=== PATIENT | male | born 1950 | race Caucasian/White ===

== ENCOUNTER 2024-05-25 07:47 | Inpatient (IN) | payer MEDICARE ==
[2024-05-23 15:24] LABS: BASOPHILS % 0.3 % (0.0-1.0); EOSINOPHILS # (AUTO) 0.1 (0.0-0.4); EOSINOPHILS % 1.4 % (0.0-6.0); HEMATOCRIT 47.6 % (38.2-49.6); HEMOGLOBIN 15.8 g/dL (14.0-18.0); LYMPHOCYTES # (AUTO) 3.1 (1.0-3.2); LYMPHOCYTES % 35.3 % (18.0-39.1); MEAN CORPUSCULAR HEMOGLOBIN 33.4 pg (28-32); MEAN CORPUSCULAR HGB CONC 33.2 g/dL (31-35); MEAN CORPUSCULAR VOLUME 100.6 fL (81-99); MONOCYTES # (AUTO) 0.7 (0.2-0.8); MONOCYTES % 7.9 % (4.4-11.3); NEUTROPHILS # (AUTO) 4.7 (2.1-6.9); NEUTROPHILS % 54.5 % (38.7-80.0); PLATELET COUNT 165 x10e3/uL (140-360); RED BLOOD COUNT 4.73 x10e6/uL (4.3-5.7); RED CELL DISTRIBUTION WIDTH 12.5 % (11.7-14.4); WHITE BLOOD COUNT 8.68 x10e3/uL (4.8-10.8)
[2024-05-23 15:39] LABS: ANION GAP 14.8 mmol/L (8-16); CALCIUM 9.8 mg/dL (8.4-10.2); CREATININE, SERUM 1.12 mg/dL (0.72-1.25); POTASSIUM 3.8 mmol/L (3.5-5.1)
[~2024-05-25] VITALS: Ht 188 cm; Wt 91.6 kg
[~2024-05-25 07:47] MED LIST: FINASTERIDE5 MG PO; FLOMAX0.4 MG PO; PREDNISONE5 MG PO
[2024-05-25] MEDS: SODIUM CHLORIDE 0.9% 1000ML 1,000 ML ONE (08:16)
[2024-05-25] MEDS: CEFTRIAXONE 1 GM VIAL ONE (08:16)
[2024-05-25] MEDS: GENTAMICIN 80MG/NS 100 ML 200 ML IV ONE (08:17)
[2024-05-25] MEDS ORDERED: LIDOCAINE HCL 2% LOCAL INJ 5 ML SDV VIAL INJ ONE (10:36)
[2024-05-25] MEDS ORDERED: ACETAMINOPHEN 1000 MG/100 ML 100 ML IV ONE (10:36)
[2024-05-25] MEDS ORDERED: SEVOFLURANE INHAL SOLN 250 ML PEN BTL ONE (10:36)
[2024-05-25] MEDS ORDERED: PROPOFOL IV EMULSION 10 MG/ML 20 ML VIAL ONE ×2 (10:36→12:08)
[2024-05-25] MEDS ORDERED: DEXAMETHASONE SOD PHOS INJ 4 MG/ML SDV ONE (10:36)
[2024-05-25] MEDS ORDERED: ONDANSETRON HCL INJ 2MG/ML 2ML 2 MG/ML VIAL ONE (10:36)
[2024-05-25] MEDS ORDERED: FENTANYL CITRATE/PF 100MCG/2 ML INJ ONE ×2 (12:01→13:13)
[2024-05-25] MEDS ORDERED: EPHEDRINE SULFATE INJ 50 MG/ML VIAL ONE (12:16)
[2024-05-25] MEDS: FENTANYL CITRATE/PF 100MCG/2 ML INJ IV ONE ×2 (13:58→14:05)
[2024-05-25] MEDS ORDERED: ACETAMINOPHEN/CODEINE 300MG - 30MG TAB PO PRN (14:15)
[2024-05-25] MEDS ORDERED: ONDANSETRON HCL INJ 2MG/ML 2ML 2 MG/ML VIAL IV PRN (14:15)
[2024-05-25] MEDS ORDERED: PHENAZOPYRIDINE HCL 100 MG TAB PO PRN (14:15)
[2024-05-25] MEDS ORDERED: DIPHENHYDRAMINE HCL 25 MG CAP PO PRN (14:15)
[2024-05-25] MEDS ORDERED: ACETAMINOPHEN 1000 MG/100 ML IV PRN (14:15)
[2024-05-25 14:38] LABS: BASOPHILS % 0.3 % (0.0-1.0); EOSINOPHILS # (AUTO) 0.1 (0.0-0.4); EOSINOPHILS % 0.4 % (0.0-6.0); HEMATOCRIT 47.1 % (38.2-49.6); LYMPHOCYTES # (AUTO) 1.8 (1.0-3.2); LYMPHOCYTES % 16.3 % (18.0-39.1); MEAN CORPUSCULAR HEMOGLOBIN 33.3 pg (28-32); MEAN CORPUSCULAR HGB CONC 31.8 g/dL (31-35); MEAN CORPUSCULAR VOLUME 104.4 fL (81-99); MONOCYTES # (AUTO) 0.4 (0.2-0.8); MONOCYTES % 3.6 % (4.4-11.3); NEUTROPHILS # (AUTO) 8.9 (2.1-6.9); NEUTROPHILS % 78.9 % (38.7-80.0); PLATELET COUNT 145 x10e3/uL (140-360); RED BLOOD COUNT 4.51 x10e6/uL (4.3-5.7); RED CELL DISTRIBUTION WIDTH 12.8 % (11.7-14.4); WHITE BLOOD COUNT 11.25 x10e3/uL (4.8-10.8)
[2024-05-25 14:45] VITALS: BP 141/82; PULSE 51; RESP 14; TEMP 97.4; O2SAT 99
[2024-05-25 14:58] LABS: ANION GAP 14.3 mmol/L (8-16); CALCIUM 8.4 mg/dL (8.4-10.2); CREATININE, SERUM 1.05 mg/dL (0.72-1.25); POTASSIUM 4.3 mmol/L (3.5-5.1)
[2024-05-25 15:19] VITALS: BP 145/88; PULSE 54; RESP 18; TEMP 97.5; O2SAT 97
[2024-05-25] MEDS: SODIUM CHLORIDE 0.9% 1000ML 1,000 ML IV SCH (15:32)
[2024-05-25 15:42] VITALS: PULSE 50; RESP 20; O2SAT 99
[2024-05-25] MEDS: FENTANYL CITRATE/PF 100MCG/2 ML INJ ONE (17:32)
[2024-05-25] MEDS: TAMSULOSIN HCL 0.4 MG CAP PO SCH (19:53)
[2024-05-25] MEDS: PREDNISONE 5 MG TAB PO SCH (19:53)
[2024-05-25] MEDS: FINASTERIDE 5 MG TAB PO SCH (19:53)
[2024-05-25 20:00] VITALS: BP 121/81; PULSE 62; PULSE 65; RESP 16; RESP 18; TEMP 97.7; O2SAT 100; O2SAT 98
[2024-05-26] VITALS (7 sets, daily range): BP systolic 127–137; BP diastolic 69–84; PULSE 54–65; RESP 16–20; TEMP 97.3–98.8; O2SAT 98–99
[2024-05-26 05:16] LABS: BASOPHILS % 0.1 % (0.0-1.0); EOSINOPHILS % 0.1 % (0.0-6.0); HEMATOCRIT 45.7 % (38.2-49.6); HEMOGLOBIN 14.9 g/dL (14.0-18.0); LYMPHOCYTES # (AUTO) 1.9 (1.0-3.2); LYMPHOCYTES % 13.6 % (18.0-39.1); MEAN CORPUSCULAR HEMOGLOBIN 33.3 pg (28-32); MEAN CORPUSCULAR HGB CONC 32.6 g/dL (31-35); MONOCYTES # (AUTO) 1.1 (0.2-0.8); MONOCYTES % 7.7 % (4.4-11.3); NEUTROPHILS # (AUTO) 10.6 (2.1-6.9); NEUTROPHILS % 78.1 % (38.7-80.0); PLATELET COUNT 150 x10e3/uL (140-360); RED BLOOD COUNT 4.48 x10e6/uL (4.3-5.7); RED CELL DISTRIBUTION WIDTH 12.6 % (11.7-14.4)
[2024-05-26 05:32] LABS: ANION GAP 15.1 mmol/L (8-16); CALCIUM 8.6 mg/dL (8.4-10.2); CREATININE, SERUM 0.86 mg/dL (0.72-1.25); POTASSIUM 4.1 mmol/L (3.5-5.1)
[2024-05-27] VITALS (11 sets, daily range): BP systolic 113–135; BP diastolic 75–83; PULSE 58–75; RESP 18–20; TEMP 98.4–99.7; O2SAT 96–99
[2024-05-27 05:21] LABS: BASOPHILS % 0.2 % (0.0-1.0); EOSINOPHILS # (AUTO) 0.1 (0.0-0.4); EOSINOPHILS % 0.6 % (0.0-6.0); HEMATOCRIT 44.4 % (38.2-49.6); HEMOGLOBIN 14.5 g/dL (14.0-18.0); LYMPHOCYTES # (AUTO) 2.3 (1.0-3.2); LYMPHOCYTES % 18.1 % (18.0-39.1); MEAN CORPUSCULAR HEMOGLOBIN 33.2 pg (28-32); MEAN CORPUSCULAR HGB CONC 32.7 g/dL (31-35); MEAN CORPUSCULAR VOLUME 101.6 fL (81-99); MONOCYTES # (AUTO) 1.3 (0.2-0.8); MONOCYTES % 10.2 % (4.4-11.3); NEUTROPHILS # (AUTO) 9.1 (2.1-6.9); NEUTROPHILS % 70.5 % (38.7-80.0); PLATELET COUNT 147 x10e3/uL (140-360); RED BLOOD COUNT 4.37 x10e6/uL (4.3-5.7); RED CELL DISTRIBUTION WIDTH 12.8 % (11.7-14.4)
[2024-05-27 05:54] LABS: ANION GAP 11.8 mmol/L (8-16); CALCIUM 8.9 mg/dL (8.4-10.2); CREATININE, SERUM 0.89 mg/dL (0.72-1.25); POTASSIUM 3.8 mmol/L (3.5-5.1)
[2024-05-28] VITALS (7 sets, daily range): BP systolic 127–155; BP diastolic 76–87; PULSE 65–72; RESP 18; TEMP 98.2–99.5; O2SAT 98–100
[2024-05-28 06:30] LABS: BASOPHILS % 0.2 % (0.0-1.0); EOSINOPHILS # (AUTO) 0.1 (0.0-0.4); EOSINOPHILS % 0.4 % (0.0-6.0); HEMATOCRIT 42.1 % (38.2-49.6); HEMOGLOBIN 14.5 g/dL (14.0-18.0); LYMPHOCYTES # (AUTO) 1.8 (1.0-3.2); LYMPHOCYTES % 14.9 % (18.0-39.1); MEAN CORPUSCULAR HEMOGLOBIN 33.3 pg (28-32); MEAN CORPUSCULAR HGB CONC 34.4 g/dL (31-35); MEAN CORPUSCULAR VOLUME 96.6 fL (81-99); MONOCYTES # (AUTO) 1.2 (0.2-0.8); NEUTROPHILS # (AUTO) 9.1 (2.1-6.9); PLATELET COUNT 160 x10e3/uL (140-360); RED BLOOD COUNT 4.36 x10e6/uL (4.3-5.7); RED CELL DISTRIBUTION WIDTH 12.7 % (11.7-14.4); WHITE BLOOD COUNT 12.29 x10e3/uL (4.8-10.8)
[2024-05-28 07:01] LABS: ANION GAP 13.7 mmol/L (8-16); CALCIUM 9.1 mg/dL (8.4-10.2); CREATININE, SERUM 0.86 mg/dL (0.72-1.25); POTASSIUM 3.7 mmol/L (3.5-5.1)
== END 2024-05-28 17:14 | disposition home or self-care (01) | DRG 713 ==
LOC: OR 07:47 → PACU V 14:12 → MED/SURG 14:45
PROVIDERS: ADMIT Internal Medicine; ATTEND Internal Medicine
PROC: BT141ZZ Fluoroscopy of Kidneys, Ureters and Bladder using Low Osmolar Contrast (ICD-10-PCS; 2024-05-25)
PROC: BT101ZZ Fluoroscopy of Bladder using Low Osmolar Contrast (ICD-10-PCS; 2024-05-25)
PROC: 0V508ZZ Destruction of Prostate, Via Natural or Artificial Opening Endoscopic (ICD-10-PCS; principal; 2024-05-25 12:02)
DX: N40.1 Benign prostatic hyperplasia with lower urinary tract symptoms (principal); D68.9 Coagulation defect, unspecified; N13.8 Other obstructive and reflux uropathy; E87.20 Acidosis, unspecified; N41.9 Inflammatory disease of prostate, unspecified; R31.0 Gross hematuria; N30.90 Cystitis, unspecified without hematuria; R53.81 Other malaise
CPT/HCPCS: 36415; 71046; 74420; 80048; 83735; 85025; 88305; 88342; 93005; 94799; J0696; J1100; J1580; J2003; J2405; J7030; J7512

== ENCOUNTER 2024-07-02 03:09 | Observation (INO) | payer MEDICARE ==
[2024-07-02] VITALS (10 sets, daily range): BP systolic 114–133; BP diastolic 61–75; PULSE 58–74; RESP 16–20; TEMP 98.1–99.4; O2SAT 96–99
[~2024-07-02] VITALS: Ht 188 cm; Wt 91.6 kg
[2024-07-02 04:19] LABS: BASOPHILS # (AUTO) 0.1 (0.0-0.1); BASOPHILS % 0.5 % (0.0-1.0); EOSINOPHILS # (AUTO) 0.3 (0.0-0.4); EOSINOPHILS % 2.8 % (0.0-6.0); HEMATOCRIT 37.9 % (38.2-49.6); HEMOGLOBIN 11.8 g/dL (14.0-18.0); LYMPHOCYTES # (AUTO) 2.2 (1.0-3.2); LYMPHOCYTES % 22.4 % (18.0-39.1); MEAN CORPUSCULAR HGB CONC 31.1 g/dL (31-35); MEAN CORPUSCULAR VOLUME 105.9 fL (81-99); MONOCYTES # (AUTO) 1.1 (0.2-0.8); MONOCYTES % 10.8 % (4.4-11.3); NEUTROPHILS # (AUTO) 6.2 (2.1-6.9); PLATELET COUNT 183 x10e3/uL (140-360); RED BLOOD COUNT 3.58 x10e6/uL (4.3-5.7); RED CELL DISTRIBUTION WIDTH 13.2 % (11.7-14.4); WHITE BLOOD COUNT 9.81 x10e3/uL (4.8-10.8)
[2024-07-02 04:32] LABS: INR 0.94; PROTHROMBIN TIME 13.1 seconds (11.9-14.5)
[2024-07-02 04:33] LABS: PARTIAL THROMBOPLASTIN TIME 24.4 seconds (23.8-35.5)
[2024-07-02 04:40] LABS: CLARITY,URINE TURBID (CLEAR); COLOR,URINE RED (YELLOW); GLUCOSE, URINE 1+ (NEGATIVE); KETONES,URINE NEGATIVE (NEGATIVE); LEUKOCYTE ESTERASE ,URINE NEGATIVE (NEGATIVE); NITRITE,URINE NEGATIVE (NEGATIVE); PH,URINE 7 (5 - 7); PROTEIN,URINE DIPSTICK >=300 (NEGATIVE); URINE UROBILINOGEN 0.2 mg/dL (0.2 - 1)
[2024-07-02 04:41] LABS: BACTERIA,URINE MODERATE /HPF; BILIRUBIN,URINE NEGATIVE (NEGATIVE); EPITHELIAL CELLS,URINE FEW /LPF; RBC,URINE >50 /HPF (0-5)
[2024-07-02 04:42] LABS: ALBUMIN 3.6 g/dL (3.5-5.0); ALBUMIN/GLOBULIN RATIO 1.6 (0.8-2.0); BILIRUBIN,TOTAL 0.4 mg/dL (0.2-1.2); CALCIUM 9.4 mg/dL (8.4-10.2); CREATININE, SERUM 1.15 mg/dL (0.72-1.25); TOTAL PROTEIN 5.9 g/dL (6.5-8.1)
[2024-07-02] MEDS: SODIUM CHLORIDE 0.9% 1000ML 1,000 ML IV SCH (06:04)
[2024-07-02] MEDS ORDERED: DIPHENHYDRAMINE HCL 25 MG CAP PO PRN (09:45)
[2024-07-02] MEDS ORDERED: LIDOCAINE 4% PATCH TP PRN (09:45)
[2024-07-02] MEDS ORDERED: HYDROCODONE/APAP 5MG-325MG TAB PO PRN (09:45)
[2024-07-02] MEDS ORDERED: ONDANSETRON HCL INJ 2MG/ML 2ML 2 MG/ML VIAL IV PRN (09:45)
[2024-07-02] MEDS ORDERED: POTASSIUM CHLORIDE 20 MEQ TAB CR PO PRN (09:45)
[2024-07-02] MEDS ORDERED: SIMETHICONE 80 MG CHEW PO PRN (09:45)
[2024-07-02] MEDS ORDERED: ACETAMINOPHEN 325 MG TAB PO PRN (09:45)
[2024-07-02] MEDS ORDERED: ALBUTEROL/IPRATROPIUM 3 ML NEB NEB PRN (09:45)
[2024-07-02] MEDS ORDERED: DOCUSATE SODIUM 100 MG CAP PO PRN (09:45)
[2024-07-02] MEDS ORDERED: HYDRALAZINE HCL 20 MG/ML VIAL IV PRN (09:45)
[2024-07-02] MEDS ORDERED: BENZONATATE 100 MG CAP PO PRN (09:45)
[2024-07-02] MEDS ORDERED: DEXTROSE 50% SYRINGE 50 ML IV PRN (09:45)
[2024-07-02] MEDS ORDERED: MELATONIN 5 MG TABLET PO PRN (09:45)
[2024-07-02 10:24] LABS: HEMOGLOBIN 10.2 g/dL (14.0-18.0)
[2024-07-02] MEDS: PANTOPRAZOLE SOD 40 MG TABEC PO SCH (11:30)
[2024-07-02] MEDS: TAMSULOSIN HCL 0.4 MG CAP PO SCH (12:58)
[2024-07-02] MEDS: FINASTERIDE 5 MG TAB PO SCH (12:58)
[2024-07-02] MEDS ORDERED: PREDNISONE1 MG PO (13:06)
[2024-07-02] MEDS: PREDNISONE 5 MG/5 ML SOLN PO SCH (16:56)
[2024-07-02 17:53] LABS: HEMATOCRIT 30.6 % (38.2-49.6); HEMOGLOBIN 9.5 g/dL (14.0-18.0)
[2024-07-03] VITALS (10 sets, daily range): BP systolic 111–124; BP diastolic 62–68; PULSE 60–74; RESP 18–20; TEMP 97.7–99.3; O2SAT 96–98
[2024-07-03 06:32] LABS: BASOPHILS % 0.3 % (0.0-1.0); EOSINOPHILS # (AUTO) 0.2 (0.0-0.4); EOSINOPHILS % 2.6 % (0.0-6.0); HEMATOCRIT 28.5 % (38.2-49.6); HEMOGLOBIN 8.9 g/dL (14.0-18.0); LYMPHOCYTES # (AUTO) 2.4 (1.0-3.2); MEAN CORPUSCULAR HEMOGLOBIN 33.2 pg (28-32); MEAN CORPUSCULAR HGB CONC 31.2 g/dL (31-35); MEAN CORPUSCULAR VOLUME 106.3 fL (81-99); MONOCYTES # (AUTO) 0.9 (0.2-0.8); MONOCYTES % 10.1 % (4.4-11.3); NEUTROPHILS # (AUTO) 5.2 (2.1-6.9); NEUTROPHILS % 59.7 % (38.7-80.0); PLATELET COUNT 121 x10e3/uL (140-360); RED BLOOD COUNT 2.68 x10e6/uL (4.3-5.7); RED CELL DISTRIBUTION WIDTH 13.2 % (11.7-14.4); WHITE BLOOD COUNT 8.69 x10e3/uL (4.8-10.8)
[2024-07-03 06:58] LABS: ANION GAP 10.6 mmol/L (8-16); CALCIUM 8.2 mg/dL (8.4-10.2); CREATININE, SERUM 0.88 mg/dL (0.72-1.25); POTASSIUM 3.6 mmol/L (3.5-5.1)
[2024-07-03] MEDS: PREDNISONE 5 MG/5 ML SOLN PO SCH (16:23)
[2024-07-04] VITALS (7 sets, daily range): BP systolic 118–134; BP diastolic 67–71; PULSE 57–72; RESP 17–19; TEMP 97.6–99; O2SAT 97–100
[2024-07-04 05:46] LABS: BASOPHILS % 0.2 % (0.0-1.0); EOSINOPHILS # (AUTO) 0.2 (0.0-0.4); EOSINOPHILS % 2.6 % (0.0-6.0); HEMATOCRIT 27.3 % (38.2-49.6); HEMOGLOBIN 9.2 g/dL (14.0-18.0); LYMPHOCYTES # (AUTO) 2.2 (1.0-3.2); LYMPHOCYTES % 25.5 % (18.0-39.1); MEAN CORPUSCULAR HEMOGLOBIN 33.1 pg (28-32); MEAN CORPUSCULAR HGB CONC 33.7 g/dL (31-35); MEAN CORPUSCULAR VOLUME 98.2 fL (81-99); MONOCYTES # (AUTO) 0.8 (0.2-0.8); MONOCYTES % 9.8 % (4.4-11.3); NEUTROPHILS # (AUTO) 5.2 (2.1-6.9); NEUTROPHILS % 61.5 % (38.7-80.0); PLATELET COUNT 133 x10e3/uL (140-360); RED BLOOD COUNT 2.78 x10e6/uL (4.3-5.7); RED CELL DISTRIBUTION WIDTH 13.4 % (11.7-14.4)
[2024-07-04 06:34] LABS: ANION GAP 12.5 mmol/L (8-16); CALCIUM 8.5 mg/dL (8.4-10.2); CREATININE, SERUM 0.81 mg/dL (0.72-1.25); POTASSIUM 3.5 mmol/L (3.5-5.1)
[2024-07-11] MEDS ORDERED: SENNA S TABLET1 EACH PO (10:03)
[2024-07-11] MEDS ORDERED: CEPHALEXIN500 MG PO (10:03)
[2024-07-11] MEDS ORDERED: SODIUM BICARBO650 MG PO (10:03)
[2024-07-11] MEDS ORDERED: Ferrous Sulfate PO (10:03)
== END 2024-07-04 17:30 | disposition home or self-care (01) ==
LOC: ER 03:15 → ERHOLD 05:45 → MED/SURG3 07:40
PROVIDERS: ADMIT Internal Medicine; ATTEND Internal Medicine
DX: R31.0 Gross hematuria (principal); R33.9 Retention of urine, unspecified; M35.3 Polymyalgia rheumatica; Z90.79 Acquired absence of other genital organ(s); Z98.890 Other specified postprocedural states; Z79.899 Other long term (current) drug therapy; Z79.52 Long term (current) use of systemic steroids
CPT/HCPCS: 36415 ×3; 51700; 80048 ×2; 80053; 81001; 85014; 85018; 85025 ×3; 85610; 85730; 87086; 94799 ×3; 99284; G0378 ×3; J0692 ×3; J7030 ×2; S0164 ×3

== ENCOUNTER 2024-07-06 07:45 | Inpatient (IN) | payer MEDICARE ==
[~2024-07-06] VITALS: Ht 188 cm; Wt 88.5 kg
[~2024-07-06 07:45] MED LIST changes: +PREDNISONE1 MG PO
[2024-07-06 08:17] LABS: BASOPHILS # (AUTO) 0.1 (0.0-0.1); BASOPHILS % 0.5 % (0.0-1.0); EOSINOPHILS % 0.3 % (0.0-6.0); HEMATOCRIT 27.6 % (38.2-49.6); HEMOGLOBIN 8.8 g/dL (14.0-18.0); LYMPHOCYTES # (AUTO) 1.3 (1.0-3.2); LYMPHOCYTES % 12.3 % (18.0-39.1); MEAN CORPUSCULAR HEMOGLOBIN 33.3 pg (28-32); MEAN CORPUSCULAR HGB CONC 31.9 g/dL (31-35); MEAN CORPUSCULAR VOLUME 104.5 fL (81-99); MONOCYTES # (AUTO) 0.9 (0.2-0.8); MONOCYTES % 8.3 % (4.4-11.3); NEUTROPHILS # (AUTO) 8.4 (2.1-6.9); NEUTROPHILS % 77.8 % (38.7-80.0); PLATELET COUNT 217 x10e3/uL (140-360); RED BLOOD COUNT 2.64 x10e6/uL (4.3-5.7); RED CELL DISTRIBUTION WIDTH 13.1 % (11.7-14.4); WHITE BLOOD COUNT 10.83 x10e3/uL (4.8-10.8)
[2024-07-06] MEDS ORDERED: ONDANSETRON HCL INJ 2MG/ML 2ML 2 MG/ML VIAL IV PRN (08:30)
[2024-07-06 08:46] LABS: ANION GAP 17.1 mmol/L (8-16); CALCIUM 9.4 mg/dL (8.4-10.2); CREATININE, SERUM 1.32 mg/dL (0.72-1.25); POTASSIUM 4.1 mmol/L (3.5-5.1)
[2024-07-06] MEDS: SODIUM CHLORIDE 0.9% 1000ML 1,000 ML IV SCH (09:12)
[2024-07-06 11:02] VITALS: PULSE 77; RESP 16
[2024-07-06 11:55] VITALS: BP 127/77; PULSE 71; RESP 18; TEMP 98.1; O2SAT 98
[2024-07-06 12:00] VITALS: BP 127/77; PULSE 71; RESP 18; TEMP 98.1; O2SAT 98
[2024-07-06 16:00] VITALS: BP 120/67; PULSE 68; RESP 18; TEMP 98.6; O2SAT 98
[2024-07-06] MEDS ORDERED: LIDOCAINE HCL 2% LOCAL INJ 5 ML SDV VIAL INJ ONE (17:10)
[2024-07-06] MEDS ORDERED: FENTANYL CITRATE/PF 100MCG/2 ML INJ ONE (17:10)
[2024-07-06] MEDS ORDERED: SEVOFLURANE INHAL SOLN 250 ML PEN BTL ONE (17:12)
[2024-07-06] MEDS ORDERED: PROPOFOL IV EMULSION 10 MG/ML 20 ML VIAL ONE (17:12)
[2024-07-06] MEDS ORDERED: ACETAMINOPHEN 325 MG TAB PO PRN (18:00)
[2024-07-06] MEDS ORDERED: ALBUTEROL/IPRATROPIUM 3 ML NEB NEB PRN (18:00)
[2024-07-06] MEDS ORDERED: DOCUSATE SODIUM 100 MG CAP PO PRN (18:00)
[2024-07-06] MEDS ORDERED: METOPROLOL TARTRATE INJ 1 MG/ML VIAL IV PRN (18:00)
[2024-07-06 20:00] VITALS: BP 124/66; PULSE 73; RESP 18; TEMP 98.8; O2SAT 98
[2024-07-06 21:00] VITALS: BP 124/66; PULSE 73; RESP 18; TEMP 98.8; O2SAT 98
[2024-07-06] MEDS ORDERED: MELATONIN 3 MG TAB PO PRN (21:00)
[2024-07-06] MEDS ORDERED: KETOROLAC TROMETHAMINE 30 MG/ML VIAL ONE (21:52)
[2024-07-06] MEDS ORDERED: DEXAMETHASONE SOD PHOS INJ 4 MG/ML SDV ONE (21:52)
[2024-07-06] MEDS ORDERED: ONDANSETRON HCL INJ 2MG/ML 2ML 2 MG/ML VIAL ONE (21:52)
[2024-07-06] MEDS ORDERED: Morphine 10mg syringe 10 MG/ML INJ ONE (21:54)
[2024-07-06] MEDS ORDERED: SUCCINYLCHOLINE CHLORIDE 20 MG/ML 10ML VIAL ONE (21:59)
[2024-07-06] MEDS ORDERED: CEFTRIAXONE 1 GM VIAL ONE (22:16)
[2024-07-06] MEDS: ONDANSETRON HCL INJ 2MG/ML 2ML 2 MG/ML VIAL IV PRN (23:20)
[2024-07-06] MEDS ORDERED: ACETAMINOPHEN/CODEINE 300MG - 30MG TAB PO PRN (23:30)
[2024-07-06] MEDS ORDERED: ACETAMINOPHEN 1000 MG/100 ML IV PRN (23:30)
[2024-07-06] MEDS ORDERED: DIPHENHYDRAMINE HCL 25 MG CAP PO PRN (23:30)
[2024-07-07] VITALS (17 sets, daily range): BP systolic 102–122; BP diastolic 52–75; PULSE 63–77; RESP 14–19; TEMP 98.1–99.7; O2SAT 95–100
[2024-07-07] MEDS: Morphine 4mg INJECTION 4 MG/ML INJ IV PRN (00:41)
[2024-07-07] MEDS: SIMETHICONE 80 MG CHEW PO PRN (00:41)
[2024-07-07] MEDS: SODIUM CHLORIDE 0.9% 1000ML 1,000 ML IV SCH (06:28)
[2024-07-07] MEDS: SENNA-S TABLET PO SCH (09:00)
[2024-07-07] MEDS: PHENAZOPYRIDINE HCL 100 MG TAB PO PRN (09:02)
[2024-07-07] MEDS: FINASTERIDE 5 MG TAB PO SCH (09:04)
[2024-07-07] MEDS: TAMSULOSIN HCL 0.4 MG CAP PO SCH (09:04)
[2024-07-07] MEDS: FAMOTIDINE 20 MG TAB PO SCH (09:04)
[2024-07-07 10:22] LABS: ANION GAP 12.9 mmol/L (8-16); CALCIUM 7.7 mg/dL (8.4-10.2); CREATININE, SERUM 0.81 mg/dL (0.72-1.25); POTASSIUM 3.9 mmol/L (3.5-5.1)
[2024-07-07 11:02] LABS: FERRITIN 206.91 ng/mL (21.81-274.66)
[2024-07-07 11:51] LABS: BASOPHILS % 0.3 % (0.0-1.0); EOSINOPHILS # (AUTO) 0.1 (0.0-0.4); EOSINOPHILS % 1.2 % (0.0-6.0); HEMATOCRIT 23.1 % (38.2-49.6); LYMPHOCYTES # (AUTO) 1.7 (1.0-3.2); LYMPHOCYTES % 15.6 % (18.0-39.1); MEAN CORPUSCULAR HEMOGLOBIN 32.4 pg (28-32); MEAN CORPUSCULAR HGB CONC 29.9 g/dL (31-35); MEAN CORPUSCULAR VOLUME 108.5 fL (81-99); MONOCYTES # (AUTO) 0.7 (0.2-0.8); MONOCYTES % 6.5 % (4.4-11.3); NEUTROPHILS # (AUTO) 8.5 (2.1-6.9); PLATELET COUNT 198 x10e3/uL (140-360); RED BLOOD COUNT 2.13 x10e6/uL (4.3-5.7); RED CELL DISTRIBUTION WIDTH 13.4 % (11.7-14.4); WHITE BLOOD COUNT 11.16 x10e3/uL (4.8-10.8)
[2024-07-07 11:56] LABS: HEMOGLOBIN 6.9 g/dL (14.0-18.0)
[2024-07-07] MEDS: SODIUM CHLORIDE 0.9% 250ML 250 ML IV ONE (15:57)
[2024-07-07] MEDS ORDERED: IOPAMIDOL 370 MG/ML 100 ML INFUS..BTL INJ ONE (18:40)
[2024-07-07] MEDS ORDERED: SODIUM CHLORIDE 0.9% 100 ML ONE (18:40)
[2024-07-07] MEDS: SODIUM FERRIC GLUCONATE COMPLX 125 MG in SODIUM CHLORIDE 0.9% 100 ML IV SCH (21:58)
[2024-07-07] MEDS: SODIUM CHLORIDE 0.9% 250ML 250 ML ONE (21:58)
[2024-07-07 22:36] LABS: BILIRUBIN,URINE NEGATIVE (NEGATIVE); CLARITY,URINE CLEAR (CLEAR); COLOR,URINE YELLOW (YELLOW); GLUCOSE, URINE NEGATIVE (NEGATIVE); KETONES,URINE NEGATIVE (NEGATIVE); LEUKOCYTE ESTERASE ,URINE TRACE (NEGATIVE); NITRITE,URINE POSITIVE (NEGATIVE); PH,URINE 6 (5 - 7); PROTEIN,URINE DIPSTICK 1+ (NEGATIVE); URINE UROBILINOGEN 0.2 mg/dL (0.2 - 1)
[2024-07-07 22:56] LABS: BACTERIA,URINE MANY /HPF; EPITHELIAL CELLS,URINE FEW /LPF; RBC,URINE >50 /HPF (0-5); RENAL EPITHELIAL CELLS,URINE FEW; WBC,URINE (MAN) 21-50 /HPF (0-5)
[2024-07-08] VITALS (11 sets, daily range): BP systolic 105–142; BP diastolic 61–87; PULSE 60–76; RESP 16–22; TEMP 98.2–99.1; O2SAT 92–99
[2024-07-08 07:58] LABS: BASOPHILS % 0.2 % (0.0-1.0); EOSINOPHILS # (AUTO) 0.4 (0.0-0.4); EOSINOPHILS % 4.3 % (0.0-6.0); HEMATOCRIT 24.6 % (38.2-49.6); LYMPHOCYTES # (AUTO) 1.6 (1.0-3.2); LYMPHOCYTES % 19.6 % (18.0-39.1); MEAN CORPUSCULAR HEMOGLOBIN 32.1 pg (28-32); MEAN CORPUSCULAR HGB CONC 32.5 g/dL (31-35); MEAN CORPUSCULAR VOLUME 98.8 fL (81-99); MONOCYTES # (AUTO) 0.8 (0.2-0.8); MONOCYTES % 9.2 % (4.4-11.3); NEUTROPHILS # (AUTO) 5.4 (2.1-6.9); NEUTROPHILS % 66.1 % (38.7-80.0); PLATELET COUNT 170 x10e3/uL (140-360); RED BLOOD COUNT 2.49 x10e6/uL (4.3-5.7); RED CELL DISTRIBUTION WIDTH 14.8 % (11.7-14.4); WHITE BLOOD COUNT 8.11 x10e3/uL (4.8-10.8)
[2024-07-08 08:18] LABS: INR 1.04; PROTHROMBIN TIME 14.2 seconds (11.9-14.5)
[2024-07-08 08:19] LABS: PARTIAL THROMBOPLASTIN TIME 35.3 seconds (23.8-35.5)
[2024-07-08 08:27] LABS: ANION GAP 11.7 mmol/L (8-16); CALCIUM 8.4 mg/dL (8.4-10.2); CREATININE, SERUM 0.81 mg/dL (0.72-1.25); POTASSIUM 3.7 mmol/L (3.5-5.1)
[2024-07-09] VITALS (8 sets, daily range): BP systolic 121–125; BP diastolic 67–84; PULSE 60–70; RESP 17–20; TEMP 98.4–99.8; O2SAT 93–98
[2024-07-09 06:09] LABS: BASOPHILS % 0.3 % (0.0-1.0); EOSINOPHILS # (AUTO) 0.4 (0.0-0.4); EOSINOPHILS % 5.3 % (0.0-6.0); HEMATOCRIT 25.7 % (38.2-49.6); HEMOGLOBIN 8.2 g/dL (14.0-18.0); LYMPHOCYTES # (AUTO) 1.7 (1.0-3.2); LYMPHOCYTES % 24.6 % (18.0-39.1); MEAN CORPUSCULAR HEMOGLOBIN 31.7 pg (28-32); MEAN CORPUSCULAR HGB CONC 31.9 g/dL (31-35); MEAN CORPUSCULAR VOLUME 99.2 fL (81-99); MONOCYTES # (AUTO) 0.6 (0.2-0.8); MONOCYTES % 7.9 % (4.4-11.3); NEUTROPHILS # (AUTO) 4.3 (2.1-6.9); NEUTROPHILS % 61.2 % (38.7-80.0); PLATELET COUNT 211 x10e3/uL (140-360); RED BLOOD COUNT 2.59 x10e6/uL (4.3-5.7); RED CELL DISTRIBUTION WIDTH 14.7 % (11.7-14.4)
[2024-07-09 06:30] LABS: ANION GAP 12.9 mmol/L (8-16); CALCIUM 8.5 mg/dL (8.4-10.2); CREATININE, SERUM 0.79 mg/dL (0.72-1.25); POTASSIUM 3.9 mmol/L (3.5-5.1)
[2024-07-10] VITALS (10 sets, daily range): BP systolic 99–137; BP diastolic 59–79; PULSE 63–74; RESP 17–20; TEMP 98.3–99.9; O2SAT 96–98
[2024-07-10 05:08] LABS: BASOPHILS % 0.4 % (0.0-1.0); EOSINOPHILS # (AUTO) 0.4 (0.0-0.4); EOSINOPHILS % 5.3 % (0.0-6.0); HEMATOCRIT 27.2 % (38.2-49.6); HEMOGLOBIN 8.7 g/dL (14.0-18.0); LYMPHOCYTES # (AUTO) 1.6 (1.0-3.2); LYMPHOCYTES % 19.7 % (18.0-39.1); MEAN CORPUSCULAR HEMOGLOBIN 31.8 pg (28-32); MEAN CORPUSCULAR VOLUME 99.3 fL (81-99); MONOCYTES # (AUTO) 0.7 (0.2-0.8); MONOCYTES % 7.9 % (4.4-11.3); NEUTROPHILS # (AUTO) 5.4 (2.1-6.9); NEUTROPHILS % 65.9 % (38.7-80.0); PLATELET COUNT 218 x10e3/uL (140-360); RED BLOOD COUNT 2.74 x10e6/uL (4.3-5.7); RED CELL DISTRIBUTION WIDTH 14.8 % (11.7-14.4); WHITE BLOOD COUNT 8.26 x10e3/uL (4.8-10.8)
[2024-07-10 05:42] LABS: ANION GAP 12.7 mmol/L (8-16); CALCIUM 8.4 mg/dL (8.4-10.2); CREATININE, SERUM 0.87 mg/dL (0.72-1.25); POTASSIUM 3.7 mmol/L (3.5-5.1)
[2024-07-10] MEDS: SODIUM BICARBONATE 650 MG TAB PO SCH (09:00)
[2024-07-11 00:24] VITALS: BP 106/58; PULSE 59; RESP 18; TEMP 98.5; O2SAT 98
[2024-07-11 04:16] VITALS: BP 117/63; PULSE 61; RESP 17; TEMP 98.8; O2SAT 97
[2024-07-11 08:46] VITALS: BP 132/78; PULSE 66; RESP 20; TEMP 98.6; O2SAT 96
[2024-07-11] MEDS: FERROUS SULFATE 325 MG TAB PO SCH (08:55)
[2024-07-11 09:00] VITALS: BP 132/78; PULSE 66; RESP 20; TEMP 98.6; O2SAT 96
[2024-07-11] MEDS ORDERED: SENNA S TABLET1 EACH PO (10:03)
[2024-07-11] MEDS ORDERED: Ferrous Sulfate PO (10:03)
[2024-07-11] MEDS ORDERED: SODIUM BICARBO650 MG PO (10:03)
[2024-07-11] MEDS ORDERED: CEPHALEXIN500 MG PO (10:03)
[2024-07-11 10:20] VITALS: PULSE 60; RESP 18; O2SAT 96
[2024-07-11] MEDS ORDERED: LEVOFLOXACIN250 MG PO (12:52)
== END 2024-07-11 13:30 | disposition home or self-care (01) | DRG 713 ==
LOC: ER 07:59 → ERHOLD 08:19 → MED/SURG 11:50
PROVIDERS: ADMIT Internal Medicine; ATTEND Internal Medicine
PROC: 0V508ZZ Destruction of Prostate, Via Natural or Artificial Opening Endoscopic (ICD-10-PCS; 2024-07-06)
PROC: 0TCB8ZZ Extirpation of Matter from Bladder, Via Natural or Artificial Opening Endoscopic (ICD-10-PCS; 2024-07-06)
PROC: BT141ZZ Fluoroscopy of Kidneys, Ureters and Bladder using Low Osmolar Contrast (ICD-10-PCS; 2024-07-06)
PROC: 30233N1 Transfusion of Nonautologous Red Blood Cells into Peripheral Vein, Percutaneous Approach (ICD-10-PCS; principal; 2024-07-07)
DX: N40.1 Benign prostatic hyperplasia with lower urinary tract symptoms (principal); D62 Acute posthemorrhagic anemia; N17.9 Acute kidney failure, unspecified; S37.29XA Other injury of bladder, initial encounter; N13.8 Other obstructive and reflux uropathy; R31.9 Hematuria, unspecified; R33.8 Other retention of urine; M35.3 Polymyalgia rheumatica; Z11.52 Encounter for screening for COVID-19; Z79.52 Long term (current) use of systemic steroids; Z90.49 Acquired absence of other specified parts of digestive tract; X58.XXXA Exposure to other specified factors, initial encounter
CPT/HCPCS: 36415; 51700; 74174; 74420; 80048; 81001; 82607; 82728; 82746; 83540; 83615; 83735; 84466; 85025; 85045; 85610; 85730; 86850; 86900; 86920; 94799; 99252; 99284; C1758; C1769; J0330; J0696; J1100; J1885; J2003; J2270; J2405; J2916; J7030; J7050; P9016; Q9967